=== PATIENT | female | born 1995 | race Asian ===

== ENCOUNTER 2020-01-19 13:41 | Outpatient (REF) | payer OTHER, SELFPAY ==
[2020-01-22 02:42] LABS: SARS-CoV-2 RNA Undetected (Undetected); SARS-CoV-2 Specimen Source Nasal
== END 2020-01-19 14:01 ==
LOC: NCHCN 13:41
PROVIDERS: PCP Physician Assistant Medical; Visit Provider Physician Assistant Medical
DX: Z20.828 Contact with and (suspected) exposure to other viral communicable diseases (principal)
CPT/HCPCS: U0003